=== PATIENT | female | born 2000 | race Caucasian/White ===

== ENCOUNTER 2023-08-30 21:51 | Emergency (ER) | payer OTHER ==
--- NOTE | 2023-08-30 23:47 | ER ---
Nurse's Notes [facility] Name: Charisse Pitt Age: 22 yrs Sex: Female : 2000 Arrival Date: 08/30/2023 Time: 21:51 Bed 17 Private MD: Diagnosis: 34 weeks gestation of ;Discomfort of Presentation: 08/29 22:48 Chief complaint: Patient states: lower back pain and decreased movement. pt has as6 not had her first OB appointment yet. Coronavirus screen: At this time, the client does not indicate any symptoms associated with coronavirus-19. Ebola Screen: No symptoms or risks identified at this time. Initial Sepsis Screen: Does the patient meet any 2 criteria? No. Patient's initial sepsis screen is negative. Does the patient have a suspected source of infection? No. Patient's initial sepsis screen is negative. Risk Assessment: Do you want to hurt yourself or someone else? Patient reports no desire to harm self or others. Onset of symptoms was August 30, 2023. 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 - Infectious Disease History:: Denies. - Social history:: Smoking status: Patient denies any tobacco usage or history of. - Family history:: not pertinent. Screenin:16 [facility] ED Fall Risk Assessment (Adult) History of falling in the last 3 months, kd3 including since admission No falls in past 3 months (0 pts) Confusion or Disorientation No (0 pts) Intoxicated or Sedated No (0 pts) Impaired Gait No (0 pts) Mobility Assist Device Used No (0 pt) Altered Elimination No (0 pt) Score/Fall Risk Level 0 - 2 = Low Risk Oriented to surroundings. Abuse screen: Denies threats or abuse. Denies injuries from another. Nutritional screening: No deficits noted. Tuberculosis screening: No symptoms or risk factors identified. Assessment: 23:15 General: Appears in no apparent distress. Behavior is calm, cooperative. Pain: Denies kd3 pain. Neuro: Level of Consciousness is awake, alert, obeys commands, Oriented to person, place, time, situation. Cardiovascular: Patient's skin is warm and dry. Respiratory: Airway is patent Trachea midline Respiratory effort is even, unlabored, Respiratory pattern is regular, symmetrical. Vital Signs: 22:47 BP 117 / 80; Pulse 96; Resp 18; Temp 98.7; Pulse Ox 95% ; Weight 81.65 kg; Height 4 ft. as6 10 in. ; Pain 4/10; 08/30 00:03 BP 113 / 69; Pulse 98; Resp 16; Pulse Ox 98% on R/A; kd3 08/29 22:47 Body Mass Index 37.62 (81.65 kg, 147.32 cm) as6 08/29 22:47 Pain Scale: Adult as6 Ava Coma Score: 20:32 Eye Response: spontaneous(4). Motor Response: obeys commands(6). Verbal Response: sp4 oriented(5). Total: 15. ED Course: 08/29 21:56 Patient arrived in ED. mr 22:02 Ethan Dixon MD is Attending Physician. sp4 22:41 US OB Complete In Process Unspecified. EDMS 22:46 Arm band placed on right wrist. as6 22:48 Triage completed. as6 23:13 Sophie Tracy, ROBERT is Primary Nurse. kd3 23:16 Patient has correct armband on for positive identification. Bed in low position. Call kd3 light in reach. Side rails up X2. Provided Education on: ultrasound . 08/30 00:03 No provider procedures requiring assistance completed. IV discontinued, intact, kd3 bleeding controlled, No redness/swelling at site. Pressure dressing applied. Administered Medications: No medications were administered Medication: 08/29 23:15 VIS not applicable for this client. kd3 Outcome: 23:46 Discharge ordered by . sp4 08/30 00:03 Discharged to home ambulatory, kd3 Condition: stable Discharge instructions given to patient, family, Instructed on discharge instructions, follow up and referral plans. Demonstrated understanding of instructions, follow-up care, 00:04 Patient left the ED. kd3 Signatures: Dispatcher [employer] EDCT Maine Laboy, Reg Reg Paulo Gardner, RN RN as6 Sophie Tracy RN RN kd3 Ethan Dixon MD MD sp4 Corrections: (The following items were deleted from the chart) 08/29 22:48 22:47 PMHx: Unable to Obtain; as6 as6
--- NOTE | 2023-08-30 23:47 | EDPHYS ---
Physician Documentation [facility] Name: Charisse Pitt Age: 22 yrs Sex: Female : 2000 Arrival Date: 08/30/2023 Time: 21:51 Bed 17 Private MD: ED Physician Ethan Dixon HPI: 08/29 22:02 This 22 yrs old Female presents to ER via Unassigned with complaints of sp4 , Decreased movement. 08/30 20:32 Patient is a very pleasant 22-year-old female who reports to be at 32 weeks EGA, G1, P0 sp4 presents with complaint that she has decreased movement. Patient reports to be under some stress at home and this morning she did not feel her baby move. She is here requesting ultrasound for evaluation. Patient reports she has not scheduled her care yet but she plans to go to [facility] for care. . 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 - Infectious Disease History:: Denies. - Social history:: Smoking status: Patient denies any tobacco usage or history of. - Family history:: not pertinent. ROS: 08/30 20:32 Constitutional: Negative for fever, chills, and weight loss, positive for decreased sp4 movements. All other systems are negative, Exam: 20:32 Constitutional: This is a well developed, well nourished patient who is awake, alert, sp4 and in no acute distress. Head/Face: Normocephalic, atraumatic. Eyes: Pupils equal round and reactive to light, extra-ocular motions intact. Lids and lashes normal. Conjunctiva and sclera are not injected. Cornea within normal limits. Periorbital areas with no swelling, redness, or edema. ENT: Nares patent. No nasal discharge, no septal abnormalities noted. Tympanic membranes are normal and external auditory canals are clear. Oropharynx with no redness, swelling, or masses, exudates, or evidence of obstruction, uvula midline. Mucous membranes moist. Neck: Trachea midline, no thyromegaly or masses palpated, and no cervical lymphadenopathy. Supple, full range of motion without nuchal rigidity, or vertebral point tenderness. Chest/axilla: Normal chest wall appearance and motion. Nontender with no deformity. No lesions are appreciated. Cardiovascular: Regular rate and rhythm with a normal S1 and S2. No gallops, murmurs, or rubs. Normal PMI, no JVD. No pulse deficits. Respiratory: Lungs have equal breath sounds bilaterally, clear to auscultation and percussion. No rales, rhonchi or wheezes noted. No increased work of breathing, no retractions or nasal flaring. Abdomen/GI: Soft, with normal bowel sounds. No distension or tympany. No guarding or rebound. No evidence of tenderness throughout. Back: No spinal tenderness. No costovertebral tenderness. Skin: Warm, dry with normal turgor. Normal color with no rashes, no lesions, and no evidence of cellulitis. MS/ Extremity: Pulses equal, no cyanosis. Neurovascular intact. Full, normal range of motion. Neuro: Awake and alert, GCS 15, oriented to person, place, time, and situation. Cranial nerves II-XII grossly intact. Motor strength 5/5 in all extremities. Sensory grossly intact. Psych: Awake, alert, with orientation to person, place and time. Behavior, mood, and affect are within normal limits Vital Signs: 08/29 22:47 BP 117 / 80; Pulse 96; Resp 18; Temp 98.7; Pulse Ox 95% ; Weight 81.65 kg; Height 4 ft. as6 10 in. ; Pain 4/10; 08/30 00:03 BP 113 / 69; Pulse 98; Resp 16; Pulse Ox 98% on R/A; kd3 08/29 22:47 Body Mass Index 37.62 (81.65 kg, 147.32 cm) as6 08/29 22:47 Pain Scale: Adult as6 Cary Coma Score: 20:32 Eye Response: spontaneous(4). Motor Response: obeys commands(6). Verbal Response: sp4 oriented(5). Total: 15. MDM: 08/29 22:03 Patient medically screened. sp4 23:47 ED course: INDICATION: Decreased movement. PROCEDURE: Obstetric ultrasound sp4 greater than 14 weeks. COMPARISON: None FINDINGS: There is a single live imaging gestation identified in cephalic presentation.. A heart rate of 162 pm is demonstrated. The placenta is located along the anterior wall without evidence of placenta previa or abruption. Estimated placental grade is 1. The amniotic fluid volume is normal with anAFI of 14.6 cm. The cervix is nondilated and measures 4.2 cm in length. biometry: Femoral length of 6.7 cm which corresponds to 34 weeks 2 days. IMPRESSION: 1. Single live intrauterine gestation identified in cephalic presentation. Electronically signed by: Jesse Christianson MD 08/30/2023 11:21 PM . 08/30 20:50 Differential Diagnosis Miscarriage, intrauterine demise, incomplete , sp4 complete , threatened . Data reviewed: vital signs, nurses notes, radiologic studies, ultrasound. ED course: Ultrasound reveals single intrauterine gestation in cephalic presentation with EGA 34 weeks and 2 days. heart tones 162. Patient advised to follow-up with [facility] for care STEPHANIA. Otherwise stable for discharge. 08/29 22:03 Order name: US OB Complete sp4 Administered Medications: No medications were administered Disposition Summary: 08/30/23 23:46 Discharge Ordered Notes: Location: Home sp4 Problem: new sp4 Symptoms: have improved sp4 Condition: Stable sp4 Diagnosis - 34 weeks gestation of sp4 - Discomfort of sp4 Followup: sp4 - With: Private Physician - When: 7 - 10 days - Reason: Recheck today's complaints Discharge Instructions: - Discharge Summary Sheet sp4 - Care sp4 Forms: - Patient Portal Instructions sp4 Signatures: Dispatcher [employer] Paulo Lakhani RN RN as6 Ethan Dixon MD MD sp4 Corrections: (The following items were deleted from the chart) 08/29 22:04 22:04 OB Complete+[email or web address] ordered. MOLLY BARNES 22:48 22:47 PMHx: Unable to Obtain; as6 as6
[2023-08-31 00:43] VITALS: BP 113/69; TEMP 98.7; O2SAT 98
--- NOTE | 2023-08-31 12:44 | RAD REPORT ---
EXAM DESCRIPTION: US - OB Complete - 08/30/2023 10:39 pm CLINICAL HISTORY: Decreased movement. TECHNIQUE: Obstetric ultrasound greater than 14 weeks. COMPARISON: None FINDINGS: There is a single live imaging gestation identified in cephalic presentation.. A heart rate of 162 pm is demonstrated. The placenta is located along the anterior wall without evidence of placenta previa or abruption. Est imated placental grade is 1. The amniotic fluid volume is normal with an DARIN of 14.6 cm. The cervix is nondilated and measures 4.2 cm in length. biometry: Femoral length of 6.7 cm which corresponds to 34 weeks 2 days. IMPRESSION: 1. Single live intrauterine gestation identified in cephalic presentation. Electronically signed by: Jesse Christianson MD 08/30/2023 11:21 PM CDT RP Due to temporary technical issues with the PACS/Fluency reporting system, reports are being signed by the in house radiologists without review as a courtesy to insure prompt reporting. The interpreting radiologist is fully responsible for the content of the report.
== END 2023-08-31 00:04 | disposition home or self-care (01) ==
LOC: ER 21:51
DX: O36.8130 Decreased fetal movements, third trimester, not applicable or unspecified (principal); Z3A.34 34 weeks gestation of pregnancy
CPT/HCPCS: 76805; 99283